=== PATIENT | male | born 1980 | race American Indian/Alaskan Native ===

== ENCOUNTER 2021-01-11 09:20 | Emergency (ER) | payer SELFPAY ==
--- NOTE | 2021-01-11 09:57 | XRay Report ---
CHEST 1 VIEW 01/11/2021 8:50 AM INDICATION / CLINICAL INFORMATION: Chest pain. History of CHF. COMPARISON: None available. FINDINGS: SUPPORT DEVICES: None. HEART / MEDIASTINUM: There is mild to moderate generalized cardiomegaly. There is mild prominence of the central pulmonary vessels. The aorta is normal in caliber. LUNGS / PLEURA: Minimal linear parenchymal opacity is present in the left mid lung laterally. The grec[place] g parenchyma is otherwise clear. No pleural effusion. No pneumothorax. ADDITIONAL FINDINGS: No significant additional findings. IMPRESSION: 1. Cardiomegaly and mild prominence of the central pulmonary vessels without overt edema. 2. Minimal subsegmental atelectasis in the left midlung. Signer Name: Eyal Pascal MD Signed: 01/11/2021 9:53 AM Workstation Name: [id number]
[2021-01-11 10:39] LABS: Basophils # (Auto) 0.1 K/mm3 (0.0-0.1); Basophils % (Auto) 1.1 % (0.0-1.8); Eosinophils # (Auto) 0.1 K/mm3 (0.0-0.4); Hematocrit 47.9 % (35.5-45.6); Hemoglobin 15.8 gm/dl (11.8-15.2); Lymphocytes # (Auto) 1.9 K/mm3 (1.2-5.4); Lymphocytes % (Auto) 24.6 % (13.4-35.0); Mean Corpuscular HGB Conc 33 % (32-34); Mean Corpuscular Volume 93 fl (84-94); Monocytes # (Auto) 0.8 K/mm3 (0.0-0.8); Monocytes % (Auto) 10.8 % (0.0-7.3); Platelet Count 237 K/mm3 (140-440); Red Blood Count 5.15 M/mm3 (3.65-5.03); Red Cell Distribution Width 15.5 % (13.2-15.2)
[2021-01-11 10:49] LABS: INR 1.11 (0.87-1.13)
[2021-01-11 10:50] LABS: Partial Thromboplastin Time 29.3 Sec. (24.2-36.6)
--- NOTE | 2021-01-11 10:58 | Emergency Department Report ---
ED General Adult HPI - General Chief complaint: Chest Pain Stated complaint: CHEST PAIN/FEET SWELLING Time Seen by Provider: 01/11/21 10:06 Source: patient Mode of arrival: Ambulatory Limitations: No Limitations - History of Present Illness Initial comments: The patient presents to the emergency department the chief complaint of chest pain and upper abdominal pain that started yesterday. Patient also complains of mild shortness of breath. Patient describes the chest pain is sharp in nature radiating to his back. Patient also states that he has not had medications for his blood pressure or or fluid buildup for the last week. Patient denies head ache, focal neurological deficits. -: Sudden Location: chest, abdomen Radiation: back Severity scale (0 -10): 10 Quality: sharp Consistency: constant Improves with: none Worsens with: none Associated Symptoms: denies other symptoms Treatments Prior to Arrival: none - Related Data Home Medications Medication Instructions Recorded Confirmed Last Taken Metoprolol [Lopressor TAB] 50 mg PO DAILY 10/11/14 10/11/14 10/10/14 Previous Rx's Medication Instructions Recorded Last Taken Type Furosemide [Lasix] 20 mg PO QDAY #30 tablet 01/11/21 Unknown Rx lisinopriL [Zestril TAB] 20 mg PO QDAY #30 tablet 01/11/21 Unknown Rx Allergies Allergy/AdvReac Type Severity Reaction Status Date / Time No Known Allergies Allergy Unverified 10/11/14 22:00 ED Review of Systems ROS: Stated complaint: CHEST PAIN/FEET SWELLING Other details as noted in HPI Comment: All other systems reviewed and negative Constitutional: denies: chills, fever Eyes: denies: eye pain, eye discharge, vision change ENT: denies: ear pain, throat pain Respiratory: denies: cough, shortness of breath, wheezing Cardiovascular: chest pain. denies: palpitations Endocrine: no symptoms reported Gastrointestinal: abdominal pain. denies: nausea, diarrhea Genitourinary: denies: urgency, dysuria Musculoskeletal: denies: back pain, joint swelling, arthralgia Skin: denies: rash, lesions Neurological: denies: headache, weakness, paresthesias Psychiatric: denies: anxiety, depression Hematological/Lymphatic: denies: easy bleeding, easy bruising ED Past Medical Hx - Past Medical History Hx Hypertension: Yes Hx Congestive Heart Failure: Yes Additional medical history: HEAD INJURY - Surgical History Past Surgical History?: No - Social History Smoking Status: Current Every Day Smoker Substance Use Type: Cocaine, Marijuana - Medications Home Medications: Home Medications Medication Instructions Recorded Confirmed Last Taken Type Metoprolol [Lopressor TAB] 50 mg PO DAILY 10/11/14 10/11/14 10/10/14 History Furosemide [Lasix] 20 mg PO QDAY #30 tablet 01/11/21 Unknown Rx lisinopriL [Zestril TAB] 20 mg PO QDAY #30 tablet 01/11/21 Unknown Rx ED Physical Exam - General Limitations: No Limitations General appearance: alert, in no apparent distress - Head Head exam: Present: atraumatic, normocephalic - Eye Eye exam: Present: normal appearance, PERRL, EOMI - ENT ENT exam: Present: mucous membranes moist - Neck Neck exam: Present: normal inspection - Respiratory Respiratory exam: Present: normal lung sounds bilaterally. Absent: respiratory distress - Cardiovascular Cardiovascular Exam: Present: regular rate, normal rhythm. Absent: systolic murmur, diastolic murmur, rubs, gallop - GI/Abdominal GI/Abdominal exam: Present: soft, distended, tenderness (Tender to palpation diffusely), normal bowel sounds - Rectal Rectal exam: Present: deferred - Extremities Exam Extremities exam: Present: normal inspection, other (Bilateral pitting edema) - Back Exam Back exam: Present: normal inspection - Neurological Exam Neurological exam: Present: alert, oriented X3 - Psychiatric Psychiatric exam: Present: normal affect, normal mood - Skin Skin exam: Present: warm, dry, intact, normal color. Absent: rash ED Course Vital Signs 01/11/21 01/11/21 01/11/21 09:28 09:53 09:56 Temperature 97.7 F Pulse Rate 104 H 106 H 105 H Respiratory 26 H 44 H 35 H Rate Blood Pressure Blood Pressure 175/117 [Right] O2 Sat by Pulse 88 Oximetry 01/11/21 01/11/21 01/11/21 10:00 10:16 10:30 Temperature Pulse Rate 94 H 107 H 108 H Respiratory 38 H 42 H 27 H Rate Blood Pressure 146/126 156/130 156/130 Blood Pressure [Right] O2 Sat by Pulse 94 94 95 Oximetry 01/11/21 01/11/21 01/11/21 10:46 11:00 11:16 Temperature Pulse Rate 102 H 96 H 105 H Respiratory 22 27 H 39 H Rate Blood Pressure 150/106 150/106 148/97 Blood Pressure [Right] O2 Sat by Pulse 94 93 92 Oximetry 01/11/21 01/11/21 01/11/21 11:50 12:00 12:16 Temperature Pulse Rate Respiratory Rate Blood Pressure 137/115 137/115 124/80 Blood Pressure [Right] O2 Sat by Pulse 94 96 98 Oximetry 01/11/21 01/11/21 01/11/21 12:30 12:46 13:00 Temperature Pulse Rate Respiratory Rate Blood Pressure 124/80 146/98 146/98 Blood Pressure [Right] O2 Sat by Pulse 92 89 90 Oximetry 01/11/21 13:16 Temperature Pulse Rate 101 H Respiratory 26 H Rate Blood Pressure 146/98 Blood Pressure [Right] O2 Sat by Pulse 91 Oximetry ED Medical Decision Making - Lab Data Result diagrams: 01/11/21 09:59 01/11/21 09:59 Lab Results 01/11/21 01/11/21 01/11/21 Range/Units 09:59 09:59 09:59 WBC 7.8 (4.5-11.0) K/mm3 RBC 5.15 H (3.65-5.03) M/mm3 Hgb 15.8 H (11.8-15.2) gm/dl Hct 47.9 H (35.5-45.6) % MCV 93 (84-94) fl MCH 31 (28-32) pg MCHC 33 (32-34) % RDW 15.5 H (13.2-15.2) % Plt Count 237 (140-440) K/mm3 Lymph % (Auto) 24.6 (13.4-35.0) % [place] % (Auto) 10.8 H (0.0-7.3) % Eos % (Auto) 1.0 (0.0-4.3) % Baso % (Auto) 1.1 (0.0-1.8) % Lymph # (Auto) 1.9 (1.2-5.4) K/mm3 [place] # (Auto) 0.8 (0.0-0.8) K/mm3 Eos # (Auto) 0.1 (0.0-0.4) K/mm3 Baso # (Auto) 0.1 (0.0-0.1) K/mm3 Seg Neutrophils % 62.5 (40.0-70.0) % Seg Neutrophils # 4.9 (1.8-7.7) K/mm3 PT 14.2 (12.2-14.9) Sec. INR 1.11 (0.87-1.13) APTT 29.3 (24.2-36.6) Sec. Sodium 136 L (137-145) mmol/L Potassium 4.5 (3.6-5.0) mmol/L Chloride 104.1 (98-107) mmol/L Carbon Dioxide 24 (22-30) mmol/L Anion Gap 12 mmol/L BUN 18 (9-20) mg/dL Creatinine 1.2 (0.8-1.3) mg/dL Estimated GFR > 60 ml/min BUN/Creatinine Ratio 15 % Glucose 108 H (75-100) mg/dL Calcium 8.7 (8.4-10.2) mg/dL Magnesium 1.80 (1.7-2.3) mg/dL Total Bilirubin 0.50 (0.1-1.2) mg/dL AST 54 H (5-40) units/L ALT 85 H (7-56) units/L Alkaline Phosphatase 50 (35-129) units/L Troponin T 0.056 H (0.00-0.029) ng/mL NT-Pro-B Natriuret Pep 1961 H (0-450) pg/mL Total Protein 6.5 (6.3-8.2) g/dL Albumin 3.3 L (3.9-5) g/dL Albumin/Globulin Ratio 1.0 % Triglycerides 128 (2-149) mg/dL Cholesterol 146 (50-199) mg/dL LDL Cholesterol Direct 98 (50-130) mg/dL HDL Cholesterol 31 L (40-59) mg/dL Cholesterol/HDL Ratio 4.70 % Urine Color (Yellow) Urine Turbidity (Clear) Urine pH (5.0-7.0) Ur Specific [place] (1.003-1.030) Urine Protein (Negative) mg/dL Urine Glucose (UA) (Negative) mg/dL Urine Ketones (Negative) mg/dL Urine Blood (Negative) Urine Nitrite (Negative) Urine Bilirubin (Negative) Urine Urobilinogen (<2.0) mg/dL Ur Leukocyte Esterase (Negative) Urine WBC (Auto) (0.0-6.0) /HPF Urine RBC (Auto) (0.0-6.0) /HPF U Epithel Cells (Auto) (0-13.0) /HPF Urine Mucus /HPF Urine Opiates Screen Urine Methadone Screen Ur Barbiturates Screen Ur Phencyclidine Scrn Ur Amphetamines Screen U Benzodiazepines Scrn Urine Cocaine Screen U Marijuana (THC) Screen Drugs of Abuse Note 01/11/21 01/11/21 01/11/21 Range/Units 13:23 13:23 13:25 WBC (4.5-11.0) K/mm3 RBC (3.65-5.03) M/mm3 Hgb (11.8-15.2) gm/dl Hct (35.5-45.6) % MCV (84-94) fl MCH (28-32) pg MCHC (32-34) % RDW (13.2-15.2) % Plt Count (140-440) K/mm3 Lymph % (Auto) (13.4-35.0) % [place] % (Auto) (0.0-7.3) % Eos % (Auto) (0.0-4.3) % Baso % (Auto) (0.0-1.8) % Lymph # (Auto) (1.2-5.4) K/mm3 [place] # (Auto) (0.0-0.8) K/mm3 Eos # (Auto) (0.0-0.4) K/mm3 Baso # (Auto) (0.0-0.1) K/mm3 Seg Neutrophils % (40.0-70.0) % Seg Neutrophils # (1.8-7.7) K/mm3 PT (12.2-14.9) Sec. INR (0.87-1.13) APTT (24.2-36.6) Sec. Sodium (137-145) mmol/L Potassium (3.6-5.0) mmol/L Chloride (98-107) mmol/L Carbon Dioxide (22-30) mmol/L Anion Gap mmol/L BUN (9-20) mg/dL Creatinine (0.8-1.3) mg/dL Estimated GFR ml/min BUN/Creatinine Ratio % Glucose (75-100) mg/dL Calcium (8.4-10.2) mg/dL Magnesium (1.7-2.3) mg/dL Total Bilirubin (0.1-1.2) mg/dL AST (5-40) units/L ALT (7-56) units/L Alkaline Phosphatase (35-129) units/L Troponin T 0.041 H D (0.00-0.029) ng/mL NT-Pro-B Natriuret Pep (0-450) pg/mL Total Protein (6.3-8.2) g/dL Albumin (3.9-5) g/dL Albumin/Globulin Ratio % Triglycerides (2-149) mg/dL Cholesterol (50-199) mg/dL LDL Cholesterol Direct (50-130) mg/dL HDL Cholesterol (40-59) mg/dL Cholesterol/HDL Ratio % Urine Color Yellow (Yellow) Urine Turbidity Clear (Clear) Urine pH 5.0 (5.0-7.0) Ur Specific [place] 1.033 H (1.003-1.030) Urine Protein 100 mg/dl (Negative) mg/dL Urine Glucose (UA) Neg (Negative) mg/dL Urine Ketones Neg (Negative) mg/dL Urine Blood Neg (Negative) Urine Nitrite Neg (Negative) Urine Bilirubin Neg (Negative) Urine Urobilinogen 4.0 (<2.0) mg/dL Ur Leukocyte Esterase Neg (Negative) Urine WBC (Auto) < 1.0 (0.0-6.0) /HPF Urine RBC (Auto) 1.0 (0.0-6.0) /HPF U Epithel Cells (Auto) < 1.0 (0-13.0) /HPF Urine Mucus Few /HPF Urine Opiates Screen Negative Urine Methadone Screen Negative Ur Barbiturates Screen Negative Ur Phencyclidine Scrn Negative Ur Amphetamines Screen Negative U Benzodiazepines Scrn Negative Urine Cocaine Screen Positive U Marijuana (THC) Screen Negative Drugs of Abuse Note Disclamer - EKG Data -: EKG Interpreted by Id EKG shows normal: sinus rhythm Rate: tachycardia - Radiology Data Radiology results: report reviewed - Medical Decision Making Patient does endorse using cocaine Patient received 20 mg of IV Lasix with urinary output greater than 500 cc Discussed with the patient his laboratory results and decrease in troponin. Patient states he has had chest pain continuously for greater than 2 days. Patient will be discharged home with Lasix and lisinopril which he states he takes at 20 mg daily Also discussed with patient need to follow-up with pulmonology which we provided for evaluation of a pulmonary nodule. Patient states he used to be a smoker and will follow up. Critical Care Time: Yes Critical care time in (mins) excluding proc time.: 35 Critical care attestation.: If time is entered above; I have spent that time in minutes in the direct care of this critically ill patient, excluding procedure time. ED Disposition Clinical Impression: Chest pain, Hypertension, CHF (congestive heart failure), Pulmonary nodule Disposition: TO HOME OR SELFCARE Is pt being admited?: No Does the pt Need Aspirin: No Condition: Stable Instructions: Nonspecific Chest Pain, Adult, Hypertension (ED), Heart Failure Action Plan, Pulmonary Nodule, [id number], Pulmonary Nodule, Hypertension, Adult Additional Instructions: Please follow-up with the client service manager I provided for you for evaluation of your pulmonary nodule. As we discussed the nodule could be benign but could be cancerous in nature you need to be seen for further follow-up via the client service manager. Please return if symptoms become worse Please refrain from illicit drug use Please take medications as prescribed Prescriptions: Furosemide [Lasix] 20 mg PO QDAY #30 tablet lisinopriL [Zestril TAB] 20 mg PO QDAY #30 tablet Referrals: PRIMARY CAREMD [Primary Care Provider] - 3-5 Days JOSE CARLOS DANG MD [Staff Physician] - 3-5 Days LINO FLORES MD [Staff Physician] - 3-5 Days Time of Disposition: 14:59
[2021-01-11 11:00] LABS: Alanine Aminotransferase 85 units/L (7-56); Albumin 3.3 g/dL (3.9-5); BUN/Creatinine Ratio 15; Blood Urea Nitrogen 18 mg/dL (9-20); Calcium 8.7 mg/dL (8.4-10.2); Hemolysis Index 26
[2021-01-11 11:14] LABS: HDL Cholesterol 31 mg/dL (40-59); LDL Cholesterol,Direct 98 mg/dL (50-130)
--- NOTE | 2021-01-11 12:43 | Cat Scan Report ---
CTA CHEST, ABDOMEN, AND PELVIS (AORTIC DISSECTION) INDICATION / CLINICAL INFORMATION: MAIN. TECHNIQUE: Axial CT images were obtained through the chest, abdomen, and pelvis before and after inje ction of 100 cc Omnipaque 350 milligrams percent IV contrast. 3 plane MIP and/or 3D reconstructions w ere produced. All CT scans at this location are performed using CT dose reduction for ALARA by means of automated exposure control. COMPARISON: None available. FINDINGS: HEART: - Size: Moderate enlargement - [place] Coronary Atherosclerosis: None. - Pericardium: No pericardial effusion. THORACIC AORTA: - Dissection: No dissection. - Aneurysm: No aneurysm or pseudoaneurysm. - Atherosclerosis: No significant atherosclerosis. GREAT VESSELS: No acute abnormality. No significant atherosclerosis. PULMONARY ARTERIES: No pulmonary emboli. CHEST VEINS: Single SVC of normal caliber as visualized to the right of midline. No significant abnor mality. ABDOMINAL AORTA: - Dissection: No dissection. - Aneurysm: No aneurysm or pseudoaneurysm. - Atherosclerosis: No significant atherosclerosis. CELIAC TRUNK: No significant abnormality. SUPERIOR MESENTERIC ARTERY: No significant abnormality. RENAL ARTERIES: Dual renal arteries bilaterally. No significant abnormality INFERIOR MESENTERIC ARTERY: No significant abnormality. RIGHT ILIAC ARTERIES: No acute abnormality. No significant atherosclerosis. LEFT ILIAC ARTERIES: No acute abnormality. No significant atherosclerosis. RIGHT FEMORAL ARTERIES: No acute abnormality. No significant atherosclerosis. - LEFT FEMORAL ARTERIES: No acute abnormality. No significant atherosclerosis. ABDOMINOPELVIC VEINS: Single IVC of normal caliber to the right of midline. No significant abnormalit y. ADDITIONAL CHEST FINDINGS: Bilateral patchy parenchymal changes noted with a lobulated mass left uppe r lobe measuring 2.8 cm. Small bilateral pleural effusions are present.. ADDITIONAL ABDOMINOPELVIC FINDINGS: No significant additional findings. SKELETAL SYSTEM: Bilateral pars defect L5 IMPRESSION: 1. 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 Bilateral patchy diffuse airspace process 3. Cardiac enlargement of moderate severity 4. Small bilateral pleural effusions Signer Name: Hugo Leo MD Signed: 01/11/2021 12:26 PM Workstation Name: [id number]
[2021-01-11] MEDS ORDERED: FUROSEMIDE 20 MG/2 ML INJ IV ONE (13:19)
[2021-01-11 13:39] LABS: Bilirubin,Urine NEG (Negative); Blood,Urine NEG (Negative); Color,Urine Yellow (Yellow); Mucus,Urine FEW /HPF; WBC,Urine < 1.0 /HPF (0.0-6.0)
[2021-01-11 13:48] LABS: Amphetamine Screen,Urine Negative; Benzodiazepines Screen,Urine Negative; Cannabinoid Screen,Urine Negative; Methadone Screen,Urine Negative; Opiate Screen,Urine Negative
[2021-01-11 14:01] LABS: Cocaine Screen,Urine Positive
[2021-01-11 15:28] VITALS: BP 148/89
--- NOTE | 2021-01-13 11:26 | Electrocardiograph Report ---
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
== END 2021-01-11 16:01 | disposition home or self-care (01) ==
LOC: ED 09:20
DX: I11.0 Hypertensive heart disease with heart failure (principal); I50.9 Heart failure, unspecified; R91.8 Other nonspecific abnormal finding of lung field; F17.200 Nicotine dependence, unspecified, uncomplicated; F12.10 Cannabis abuse, uncomplicated; Z79.899 Other long term (current) drug therapy
CPT/HCPCS: 36415; 71045; 71275; 74174; 80053; 80061; 80307; 81001; 83735; 83880; 84484; 85025; 85610; 85730; 93005; 96374; 99284; J1940; Q9967

== ENCOUNTER 2021-09-18 19:25 | Emergency (ER) | payer SELFPAY ==
--- NOTE | 2021-09-18 22:13 | Emergency Department Report ---
ED Shortness of Breath HPI - General Chief Complaint: Dyspnea/Respdistress Stated Complaint: CHEST PAIN Time Seen by Provider: 09/18/21 21:51 Source: patient Mode of arrival: Ambulatory Limitations: No Limitations - History of Present Illness Initial Comments: 40-year-old Iranian male with medical history of CHF and cardiovascular stent placement presents emergency department complaining of having a CHF exacerbation due to him being incarcerated for 2 weeks and just recently being released. States it is because recently not give him his CHF medication which is reasonable is clear. Poor swelling to his lower extremity some shortness of breath reports no fever, chills, sweats, chest pain palpitation no nausea vomiting. MD Complaint: shortness of breath, cough -: Gradual Severity: mild Quality: dull Consistency: constant Improves With: nothing Worsens With: nothing Known History Of: congestive heart failure Context: suspect foreign body Associated Symptoms: syncope Treatments Prior to Arrival: none - Related Data Home Medications Medication Instructions Recorded Confirmed Last Taken Metoprolol [Lopressor TAB] 50 mg PO DAILY 10/11/14 10/11/14 10/10/14 Previous Rx's Medication Instructions Recorded Last Taken Type Furosemide [Lasix] 20 mg PO QDAY #30 tablet 01/11/21 Unknown Rx lisinopriL [Zestril TAB] 20 mg PO QDAY #30 tablet 01/11/21 Unknown Rx Furosemide [Lasix TAB] 40 mg PO QDAY #7 tablet 09/19/21 Unknown Rx Potassium Chloride 20 meq PO DAILY #7 tab.er.prt 09/19/21 Unknown Rx Allergies Allergy/AdvReac Type Severity Reaction Status Date / Time No Known Allergies Allergy Verified 09/18/21 20:52 ED Review of Systems ROS: Stated complaint: CHEST PAIN Other details as noted in HPI Comment: All other systems reviewed and negative ED Past Medical Hx - Past Medical History Hx Hypertension: Yes Hx Heart Attack/AMI: Yes Hx Congestive Heart Failure: Yes Additional medical history: HEAD INJURY - Surgical History Additional Surgical History: stent placed in December 2020 - Social History Smoking Status: Current Some Day Smoker - Medications Home Medications: Home Medications Medication Instructions Recorded Confirmed Last Taken Type Metoprolol [Lopressor TAB] 50 mg PO DAILY 10/11/14 10/11/14 10/10/14 History Furosemide [Lasix] 20 mg PO QDAY #30 tablet 01/11/21 Unknown Rx lisinopriL [Zestril TAB] 20 mg PO QDAY #30 tablet 01/11/21 Unknown Rx Furosemide [Lasix TAB] 40 mg PO QDAY #7 tablet 09/19/21 Unknown Rx Potassium Chloride 20 meq PO DAILY #7 tab.er.prt 09/19/21 Unknown Rx ED Physical Exam - General Limitations: No Limitations General appearance: alert, in no apparent distress - Head Head exam: Present: atraumatic, normocephalic - Eye Eye exam: Present: normal appearance - ENT ENT exam: Present: mucous membranes moist - Neck Neck exam: Present: normal inspection - Respiratory Respiratory exam: Present: normal lung sounds bilaterally, rales. Absent: respiratory distress - Cardiovascular Cardiovascular Exam: Present: regular rate, normal rhythm. Absent: systolic murmur, diastolic murmur, rubs, gallop - GI/Abdominal GI/Abdominal exam: Present: soft, normal bowel sounds - Rectal Rectal exam: Present: deferred - Extremities Exam Extremities exam: Present: normal inspection, normal capillary refill, pedal edema (2+ pitting edema.). Absent: tenderness, calf tenderness - Back Exam Back exam: Present: normal inspection. Absent: CVA tenderness (R), CVA tenderness (L) - Neurological Exam Neurological exam: Present: alert, oriented X3, CN II-XII intact, normal gait - Psychiatric Psychiatric exam: Present: normal affect, normal mood - Skin Skin exam: Present: warm, dry, intact, normal color. Absent: rash ED Course Vital Signs 09/18/21 09/18/21 20:49 20:51 Temperature 98.5 F Pulse Rate 110 H Blood Pressure 178/156 O2 Sat by Pulse 97 Oximetry ED Medical Decision Making - Lab Data Result diagrams: 09/18/21 22:24 09/18/21 22:24 Critical care attestation.: If time is entered above; I have spent that time in minutes in the direct care of this critically ill patient, excluding procedure time. ED Disposition Clinical Impression: CHF (congestive heart failure) Disposition: 01 HOME / SELF CARE / HOMELESS Is pt being admited?: No Does the pt Need Aspirin: No Condition: Stable Instructions: Heart Failure Eating Plan, Heart Failure and Exercise, Heart Failure Exacerbation, Heart Failure, Self Care Prescriptions: Furosemide [Lasix TAB] 40 mg PO QDAY #7 tablet Potassium Chloride 20 meq PO DAILY #7 tab.er.prt Referrals: PRIMARY CARE, [Primary Care Provider] - 3-5 Days [facility] [Provider Group] - 3-5 Days
[2021-09-18 22:49] LABS: Basophils # (Auto) 0.1 K/mm3 (0.0-0.1); Eosinophils # (Auto) 0.1 K/mm3 (0.0-0.4); Eosinophils % (Auto) 0.9 % (0.0-4.3); Hematocrit 46.2 % (35.5-45.6); Hemoglobin 15.1 gm/dl (11.8-15.2); Lymphocytes # (Auto) 1.8 K/mm3 (1.2-5.4); Lymphocytes % (Auto) 21.7 % (13.4-35.0); Mean Corpuscular HGB Conc 33 % (32-34); Mean Corpuscular Volume 92 fl (84-94); Monocytes # (Auto) 0.9 K/mm3 (0.0-0.8); Monocytes % (Auto) 11.1 % (0.0-7.3); Platelet Count 203 K/mm3 (140-440); Red Cell Distribution Width 15.2 % (13.2-15.2)
--- NOTE | 2021-09-18 22:55 | XRay Report ---
CHEST 2 VIEWS INDICATION / CLINICAL INFORMATION: Dyspnea. COMPARISON: One view of the chest from 01/11/2021. FINDINGS: SUPPORT DEVICES: None. HEART / MEDIASTINUM: Stable cardiomegaly with central vascular congestion. LUNGS / PLEURA: There are bilateral interstitial and alveolar opacities. No significant pleural effus ion. No pneumothorax. ADDITIONAL FINDINGS: No significant additional findings. IMPRESSION: Suspected cardiogenic pulmonary edema. Signer Name: Ayo Barriga MD Signed: 09/18/2021 10:50 PM Workstation Name: [id number]
[2021-09-18 23:10] LABS: Alanine Aminotransferase 36 units/L (7-56); Albumin 2.7 g/dL (3.9-5); BUN/Creatinine Ratio 12; Blood Urea Nitrogen 13 mg/dL (9-20); Calcium 8.5 mg/dL (8.4-10.2); Hemolysis Index 22
[2021-09-19] MEDS ORDERED: FUROSEMIDE 40 MG/4 ML INJ IV ONE (01:11)
[2021-09-19 07:07] VITALS: BP 152/102
--- NOTE | 2021-09-22 10:37 | Electrocardiograph Report ---
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
== END 2021-09-19 07:10 | disposition home or self-care (01) ==
LOC: ED 19:25
DX: I50.9 Heart failure, unspecified (principal); I11.0 Hypertensive heart disease with heart failure; I25.2 Old myocardial infarction; F17.200 Nicotine dependence, unspecified, uncomplicated
CPT/HCPCS: 36415; 71046; 80053; 83880; 84484; 85025; 93005; 96374; 99284; J1940